=== PATIENT | male | born 1975 | race Two or more races ===

== ENCOUNTER 2019-09-26 19:15 | Emergency (ER) | payer SELFPAY | END 2019-09-26 19:20 | disposition home or self-care (01) | LOC: ER 19:15 | DX: R00.2 Palpitations (principal); Z53.21 Procedure and treatment not carried out due to patient leaving prior to being seen by health care provider ==

== ENCOUNTER → 2020-09-07 | Outpatient (CLI) | payer MEDICAID ==
--- NOTE | 2020-09-07 13:33 | RAD ---
XR RT WRIST 3VIEWS DATE: 09/07/2020 11:14 AM INDICATION: Reason: FELL, RIGHT WRIST PAIN / Spl. Instructions: / History: COMPARISON: None. FINDINGS: Bones: There is no evidence of acute fracture or dislocation. Joints: The joint spaces are normal. Miscellaneous: None. IMPRESSION: No evidence of acute fracture. Electronically signed by: Rolan Medrano MD (09/07/2020 1:31 PM) [id number]
== END ==
LOC: DXRAD 11:07
PROVIDERS: ATTEND Family Medicine
DX: M25.531 Pain in right wrist (principal)
CPT/HCPCS: 73110

== ENCOUNTER → 2020-10-11 | Outpatient (CLI) | payer MEDICAID ==
--- NOTE | 2020-10-11 13:26 | RAD ---
XR KNEE 3 VIEWS_RT DATE: 10/11/2020 10:48 AM INDICATION: Reason: RIGHT KNEE PAIN / Spl. Instructions: / History: COMPARISON: None. FINDINGS: No acute fracture. Severe degenerative changes of the lateral knee compartment with complete loss of joint space, bulky osteophytes, and valgus angulation. Moderate degenerative changes of the medial an d patellofemoral compartments IMPRESSION: Severe lateral compartment degenerative changes, moderate medial and patellofemoral compartment degen erative changes. Electronically signed by: Rolan Medrano MD (10/11/2020 1:23 PM) [id number]
== END ==
LOC: DXRAD 10:42
PROVIDERS: ATTEND Family Medicine
DX: M17.11 Unilateral primary osteoarthritis, right knee (principal); M25.761 Osteophyte, right knee
CPT/HCPCS: 73562